=== PATIENT | male | born 1995 | race Caucasian/White ===

== ENCOUNTER 2017-12-01 12:05 | Inpatient (IN) | payer OTHER ==
[~2017-12-01] VITALS: Ht 170.2 cm; Wt 77.1 kg
[~2017-12-01 12:05] MED LIST: INSU100S54 SC; LANTUS SUBQ
[2017-12-01 12:28] VITALS: BP 112/77
--- NOTE | 2017-12-01 12:33 | NUR ---
PT AMBULATES TO BED 3
--- NOTE | 2017-12-01 12:45 | NUR ---
Pt. BIB with c/o hyperglycemia since today. Patient States " My blood sugar 530 around approx 0900 today and i took some insulin but I have still been nauseous and week afterwards". 6/10 sharp pain in in bilat knees that is non radiating. Pt. is warm and dry to touch, RR even and unlabored. Pt. complains of nausea and vomiting with no blood present. er md notified. Will continue to monitor.
[2017-12-01] MEDS ORDERED: NACL 0.9% 2,000 ML IV SCH (12:46)
[2017-12-01] MEDS ORDERED: NACL 0.9% 1,000 ML IV SCH (12:46)
[2017-12-01] MEDS ORDERED: INSULIN REGULAR, HUMAN 100 UNIT/ML VIAL IVP ONE ×2 (12:50→13:10)
[2017-12-01] MEDS ORDERED: ONDANSETRON 4 MG/2 ML VIAL IVP ONE (12:50)
[2017-12-01 13:29] LABS: BASOPHILS % (AUTO) 0.2 % (0.0-2.0); HEMATOCRIT 49.7 % (36-52); HEMOGLOBIN 16.6 g/dL (12.0-18.0); LYMPHOCYTES # (AUTO) 1.4 K/uL (2.0-11.5); LYMPHOCYTES % (AUTO) 10.5 % (20.5-51.1); MEAN CORPUSCULAR HEMOGLOBIN 30 pg (27-31); MEAN CORPUSCULAR HGB CONC 33 g/dL (33-37); MEAN CORPUSCULAR VOLUME 89.3 fL (80-94); MONOCYTES # (AUTO) 0.3 K/uL (0.8-1.0); MONOCYTES % (AUTO) 2.3 % (1.7-9.3); NEUTROPHILS # (AUTO) 11.5 K/uL (1.8-7.7); PLATELET COUNT (AUTO) 352 K/uL (140-450); RED BLOOD CELL COUNT(AUTO) 5.56 MIL/uL (4.20-6.10); RED CELL DISTRIBUTION WIDTH 12.6 % (11.6-13.7); WHITE BLOOD COUNT (AUTO) 13.2 K/uL (4.8-10.8)
[2017-12-01 13:29] LABS: APPEARANCE,URINE CLEAR (CLEAR); BLOOD, URINE TRACE-I (NEGATIVE); COLOR,URINE YELLOW (YELLOW); LEUKOCYTE ESTERASE ,URINE NEGATIVE (NEGATIVE); NITRITE, URINE NEGATIVE (NEGATIVE); UGLUCOSE 2+ (NEGATIVE)
[2017-12-01] MEDS ORDERED: SODIUM BICARBONATE 8.4% PFS 50 MEQ/50 ML SYR IVP ONE (13:30)
[2017-12-01 13:34] LABS: BILIRUBIN,URINE NEGATIVE (NEGATIVE)
[2017-12-01 13:39] LABS: ANION GAP 24.5 (8-16); CARBON DIOXIDE 14.8 mmol/L (21-32); CREATININE 1.2 mg/dL (0.7-1.3); POTASSIUM 4.3 mmol/L (3.5-5.1)
[2017-12-01 13:44] LABS: RBC,URINE 0-5 (RARE) /HPF (0-5); WBC,URINE 0-5 (RARE) /HPF (0-5)
[2017-12-01 13:44] LABS: ACETONE, SERUM TRACE (NEGATIVE)
[2017-12-01 13:45] LABS: ALBUMIN 4.7 g/dL (3.4-5.0); TOTAL BILIRUBIN 0.5 mg/dL (0.0-1.0)
--- NOTE | 2017-12-01 13:45 | NUR ---
PT. RESTING IN BED, RR EVEN AND UNLABORED. VSS. DENIES SOB AT THIS TIME. AT BEDSIDE. WILL CONTINUE TO MONITOR.
[2017-12-01 13:50] LABS: PROTHROMBIN TIME 9.9 secs (10.8-13.4)
[2017-12-01 13:54] LABS: AMYLASE 17 U/L (25-115); LIPASE 69 U/L (73-393)
--- NOTE | 2017-12-01 14:50 | NUR ---
PT. RESTING COMFORTABLY IN BED , RR EVEN AND UNLABORED. VSS. BED IN LOWEST POSITION. WILL CONTINUE TO MONITOR.
[2017-12-01] MEDS ORDERED: ACETAMINOPHEN 325 MG TAB PO PRN (15:30)
[2017-12-01 15:32] LABS: BARBITURATE, URINE NEG. ng/ml (NEG <=200); BENZODIAZEPINE, URINE NEG. ng/mL (NEG <=200); CANNABINOID, URINE NEG. ng/mL (NEG <=50); COCAINE, URINE NEG. ng/mL (NEG <=300); OPIATE, URINE NEG. ng/mL (NEG <=2000); PHENCYCLIDINE SCREEN,URINE NEG. ng/mL (NEG <=25)
--- NOTE | 2017-12-01 15:45 | NUR ---
PT. IS SLEEPING IN BED, RR EVEN AND UNLABORED. AT BEDSIDE. WILL CONTINUE TO MONITOR.
[2017-12-01 16:12] VITALS: BP 100/68
--- NOTE | 2017-12-01 16:12 | NUR ---
PATIENT ARRIVED ON MST UNIT FROM ER. ABLE TO AMBULATE FROM ER BED TO MST BED. NO DISTRESS NOTED. DENIES ANY PAIN. AAOX4, CALM, COOPERATIVE, SKIN COLOR APPROPRIATE TO ETHNICITY, WARM TO TOUCH. SKIN INTACT. IV SITE INTACT, PATENT, AND STARTED ON IVF PER MD ORDERS. ABDOMEN SOFT, NON-DISTENDED. ORIENTED PATIENT TO ROOM AND CALL LIGHT. REVIEWED PLAN OF CARE WITH PATIENT. PATIENT VERBALIZED UNDERSTANDING. SAFETY MEASURES IN PLACE, CALL LIGHT WITHIN REACH. WILL CONTINUE TO MONITOR.
--- NOTE | 2017-12-01 16:12 | NUR ---
Patient will be admitted to care of DR. VILLALOBOS . Admited to TELEMETRY . Will go to room 119A. Belongings list completed. Report to ELI ARIAS .
[2017-12-01] MEDS: NACL 0.9% 1,000 ML IV SCH (16:43)
[2017-12-01] MEDS: INSULIN LISPRO SLIDING SCALE 100 UNITS/ML VIAL SUBQ PRN (17:43)
--- NOTE | 2017-12-01 17:44 | NUR ---
PATIENT SITTING IN BED WITH AT BEDSIDE. NO DISTRESS NOTED. INSULIN GIVEN PER MD ORDERS. SAFETY MEASURES IN PLACE, CALL LIGHT WITHIN REACH. WILL CONTINUE TO MONITOR.
[2017-12-01 17:50] LABS: ANION GAP 22.7 (8-16); CREATININE 0.9 mg/dL (0.7-1.3); POTASSIUM 4.7 mmol/L (3.5-5.1)
[2017-12-01] MEDS: BLOOD GLUCOSE MONITORING 1 DEV DEV FS SCH (18:03)
--- NOTE | 2017-12-01 18:40 | NUR ---
PATIENT SITTING IN BED TALKING WITH AT BEDSIDE. NO DISTRESS NOTED. DENIES ANY PAIN. CONDITION UNCHANGED. WILL CONTINUE TO MONITOR.
--- NOTE | 2017-12-01 19:38 | NUR ---
GAVE REPORT TO CHROME WORKER NURSE FOR CONTINUITY OF CARE. PATIENT IN STABLE CONDITION.
--- NOTE | 2017-12-01 19:38 | NUR ---
RECEIVED BEDSIDE REPORT FROM DAY SHIFT NURSE JUANA, INTRODUCED SELF, PT IN BED NO SIGNS OF ACUTE DISTRESS. IV IN L AC, 20 G, INFUSING NS AT 100 ML/HR, PATENT, DRESSING INTACT. PT ON RA, DENIES PAIN, V/S WITHIN NORMAL LIMITS. PT IS ALERT, ABLE TO MAKE NEEDS KNOWN AND FOLLOW COMMANDS, CALL LIGHT WITHIN REACH, UPDATED BOARD. WILL CONTINUE TO MONITOR.
[2017-12-01 20:00] VITALS: BP 106/65
--- NOTE | 2017-12-01 22:00 | NUR ---
PT IN BED NO SIGNS OF DISTRESS. FLUSHED IV WITH 10 ML NS D/T HIGH PRESSURE. RESOLVED. WILL CONTINUE TO MONITOR.
--- NOTE | 2017-12-01 23:53 | NUR ---
BG 212. WILL MEDICATE WITH INSULIN ACCORDING TO MD ORDER.
[2017-12-02] VITALS (7 sets, daily range): BP systolic 92–136; BP diastolic 41–74
[2017-12-02] MEDS: INSULIN LISPRO SLIDING SCALE 100 UNITS/ML VIAL SUBQ PRN ×3 (00:23→12:24)
--- NOTE | 2017-12-02 00:24 | NUR ---
PT C/O PAIN, 310 IN ABDOMEN. MEDICATED WITH TYLENOL ACCORDING TO MD ORDER.
[2017-12-02] MEDS: BLOOD GLUCOSE MONITORING 1 DEV DEV FS SCH ×13 (00:43→23:15)
[2017-12-02] MEDS: ONDANSETRON 4 MG/2 ML VIAL IVP PRN ×3 (01:04→21:44)
[2017-12-02] MEDS: NACL 0.9% 1,000 ML IV SCH ×4 (01:04→23:00)
--- NOTE | 2017-12-02 01:04 | NUR ---
PT VOMITED X1, 300 ML EMESIS, GREEN/YELLOW. MEDICATED WITH ZOFRAN ACCORDING TO MD ORDER.
--- NOTE | 2017-12-02 03:21 | NUR ---
ENDORSED PT TO PEDIATRIC SPEECH THERAPIST NURSE ARILELE. PT STABLE.
--- NOTE | 2017-12-02 04:00 | NUR ---
PATIENT VOMITED 400ML EMESIS GREENISH IN COLOR. V/S TAKEN AND RECORDED. NO S/S OF DISTRESS NOTED. WILL CONTINUE TO MONITOR.
[2017-12-02] MEDS: MORPHINE SULFATE 2 MG/ML SYR IVP PRN ×4 (05:02→23:34)
--- NOTE | 2017-12-02 05:45 | NUR ---
BS 412 TAKEN AND RECORDED. PAGED DR. NEVES AND INSTRUCTED TO GIVE 12 UNITS OF INSULIN.
--- NOTE | 2017-12-02 07:20 | NUR ---
ENDORSEMENT GIVEN TO AM SHIFT NURSE AT BEDSIDE FOR CONTINUITY OF CARE. PATIENT IN STABLE CONDITION.
--- NOTE | 2017-12-02 07:21 | NUR ---
RECEIVED REPORT FROM SECURITY SERVICES MANAGER NURSE. PATIENT LYING DOWN IN BED SLEEPING, AROUSABLE BY VOICE. NO DISTRESS NOTED. DENIES ANY PAIN AT THIS TIME. RESPIRATIONS EVEN, UNLABORED, ON ROOM AIR. REPORTS HAVING GREEN VOMIT X2 OVERNIGHT. LUNGS CTA ON ALL LOBES. ABDOMEN SOFT, NON-DISTENDED. IV SITE INTACT, PATENT, AND INFUSING IVF PER MD ORDERS. REVIEWED PLAN OF CARE WITH PATIENT. PATIENT VERBALIZED UNDERSTANDING. SAFETY MEASURES IN PLACE, CALL LIGHT WITHIN REACH. WILL CONTINUE TO MONITOR.
[2017-12-02 08:59] LABS: BASOPHILS % (AUTO) 0.1 % (0.0-2.0); HEMATOCRIT 47.1 % (36-52); HEMOGLOBIN 15.2 g/dL (12.0-18.0); LYMPHOCYTES # (AUTO) 1.2 K/uL (2.0-11.5); LYMPHOCYTES % (AUTO) 7.4 % (20.5-51.1); MEAN CORPUSCULAR HEMOGLOBIN 30 pg (27-31); MEAN CORPUSCULAR HGB CONC 32 g/dL (33-37); MEAN CORPUSCULAR VOLUME 91.5 fL (80-94); MONOCYTES # (AUTO) 0.6 K/uL (0.8-1.0); MONOCYTES % (AUTO) 3.8 % (1.7-9.3); NEUTROPHILS # (AUTO) 14.3 K/uL (1.8-7.7); NEUTROPHILS % (AUTO) 88.7 % (42.2-75.2); PLATELET COUNT (AUTO) 353 K/uL (140-450); RED BLOOD CELL COUNT(AUTO) 5.15 MIL/uL (4.20-6.10); RED CELL DISTRIBUTION WIDTH 12.8 % (11.6-13.7); WHITE BLOOD COUNT (AUTO) 16.1 K/uL (4.8-10.8)
[2017-12-02] MEDS: ENOXAPARIN 40 MG/0.4 ML SYR SUBQ SCH (09:00)
--- NOTE | 2017-12-02 09:06 | NUR ---
PATIENT HAS BEEN SCREENED AND CATEGORIZED HIGH NUTRITION RISK. PATIENT WILL BE SEEN WITHIN 1-2 DAYS OF ADMISSION. 12/02/17 12/03/[address]
[2017-12-02 09:22] LABS: ALBUMIN 4.3 g/dL (3.4-5.0); ANION GAP 31.6 (8-16); CREATININE 1.4 mg/dL (0.7-1.3); POTASSIUM 5.1 mmol/L (3.5-5.1); TOTAL BILIRUBIN 0.4 mg/dL (0.0-1.0)
[2017-12-02 09:33] LABS: CARBON DIOXIDE 6.5 mmol/L (21-32)
--- NOTE | 2017-12-02 10:00 | NUR ---
PATIENT LYING DOWN IN BED SLEEPING, AROUSABLE BY VOICE. NO DISTRESS NOTED. REFUSED ENOXAPARIN AT THIS TIME. WILL CONTINUE TO MONITOR.
--- NOTE | 2017-12-02 12:15 | NUR ---
PATIENT HAD CHILLS, NAUSEA, AND COMPLAINTS OF 6/10 GENERALIZED PAIN, MORPHINE AND ZOFRAN GIVEN PER MD ORDERS. OTHER SCHEDULED MEDICATIONS DUE GIVEN. SAFETY MEASURES IN PLACE, CALL LIGHT WITHIN REACH. WILL CONTINUE TO MONITOR.
--- NOTE | 2017-12-02 14:30 | NUR ---
PATIENT LYING DOWN IN BED SLEEPING, AROUSABLE BY VOICE. NO DISTRESS NOTED. DENIES ANY PAIN. WILL CONTINUE TO MONITOR.
[2017-12-02] MEDS ORDERED: DEXTROSE 50% 50 ML SYR IVP PRN (15:00)
--- NOTE | 2017-12-02 15:26 | NUR ---
12/02/17 RD INITIAL ASSESSMENT COMPLETED PLEASE REFER TO NUTRITION ASSESSMENT UNDER CARE ACTIVITY FOR ESTIMATED NUTRITIONAL NEEDS. 1. CONTINUE CCHO 60 DIET TOLERATED 2. RECOMMEND GLUCERNA BID IF NAUSEA PERSISTS. 3. PROVIDED DKA EDUCATION TO THE PT. 4. RD TO FOLLOW-UP 3-5 DAYS, MODERATE RISK. [address]
--- NOTE | 2017-12-02 15:39 | NUR ---
PATIENT TRANSFERRED TO ICU FROM [facility]. REPORT GIVEN TO ICU NURSE. PATIENT IN STABLE CONDITION.
--- NOTE | 2017-12-02 15:40 | NUR ---
PT RECEIVED FROM TELE UNIT VIA BED. PT A/O X4, VERBAL. ABLE TO MAKE NEEDS KNOWN. AMBULATORY. SKIN DRY AND WARM TO TOUCH. LUNGS CLEAR ON AUSCULTATION. ABDOMEN SOFT ROUND AND NON-TENDER. ACTIVE BOWEL SOUND. LEFT AC INTACT. NS RUNNING AT 150 ML/HR. SKIN INTACT. CALL LIGHT WITHIN REACH, BED IN LOW POSITION. LOCKED. KEPT ON BEDSIDE MONITOR. BED IN LOW POSITION LOCKED. WILL CONTINUE TO MONITOR.
[2017-12-02 16:08] LABS: CREATININE 1.3 mg/dL (0.7-1.3); POTASSIUM 4.6 mmol/L (3.5-5.1)
--- NOTE | 2017-12-02 16:16 | NUR ---
ADMISSION CHART REVIEW DONE. GAVE VERBAL REPORT TO HARMONY AT [facility], [phone]. FAXED ER REPORT, H&P AND PROGRESS NOTE TO HARMONY AT [facility] [phone]
[2017-12-02 16:17] LABS: CARBON DIOXIDE 9.6 mmol/L (21-32)
--- NOTE | 2017-12-02 16:44 | NUR ---
PAGED AND RECEIVED CALL BACK FROM DR. VILLALOBOS. FOLLOW UP REGARDING INSULIN BOLUS BEFORE STARTING INSULIN DRIP. SAID NO NEED OF BOLUS INSULIN. START DRIP ORDERED. MADE AWARE ABOUT BS 273.
[2017-12-02] MEDS: INSULIN REGULAR, HUMAN 100 UNIT in NACL 0.9% 100 ML IV SCH ×2 (17:13)
[2017-12-02 17:16] LABS: FREE T4 (FREE THYROXINE) 0.81 ng/dL (0.76-1.46); THYROID STIMULATING HORMONE 0.47 uIU/mL (0.34-3.74)
[2017-12-02 17:17] LABS: MAGNESIUM 1.7 mg/dL (1.8-2.4); PHOSPHORUS 2.7 mg/dL (2.5-4.9)
--- NOTE | 2017-12-02 18:55 | NUR ---
PT SLEEPING IN BED COMFORTABLY. NO CHANGE IN LOC. WILL CONTINUE TO MONITOR.
--- NOTE | 2017-12-02 19:21 | NUR ---
ENDORSED TO MANAGER SALES SUPPORT RN FOR CONTINUITY OF CARE. PT ON STABLE CONDITION.
--- NOTE | 2017-12-02 19:25 | NUR ---
RECEIVED REPORT FROM SIRKANTH LYN, FOR CONTINUITY OF CARE. VS STABLE. PERRL. AFEBRILE. ABLE TO MAKE NEEDS KNOWN. DENIES PAIN AT THIS TIME. LUNG SOUNDS CLEAR. NO SOB NOTED. PT IN ROOM AIR. S1+S2 HEARD. SR TO ST ON MONITOR. PULSES ARE PALPABLE IN ALL EXTREMITIES. ABDOMEN ROUND, SOFT AND NONDISTENDED. BS ACTIVE IN ALL QUADRANTS. PT ABLE TO TURN AND REPOSITION SELF. PT HAS LEFT AC PERIPHERAL IV ACCESS 20G. NS RUNNING AT 100ML/HR AND ON INSULIN DRIP AT 2UNITS/HR. HOB KEPT AT 30 DEGREES. ALL SAFETY PRECAUTIONS ARE IN PLACE. CALL LIGHT WITHIN REACH.
--- NOTE | 2017-12-02 20:35 | NUR ---
PT'S AT BEDSIDE AT THIS TIME.
[2017-12-02 21:07] LABS: ANION GAP 24.3 (8-16); CARBON DIOXIDE 10.8 mmol/L (21-32); CREATININE 1.3 mg/dL (0.7-1.3); POTASSIUM 4.1 mmol/L (3.5-5.1)
[2017-12-02 21:11] LABS: MAGNESIUM 1.7 mg/dL (1.8-2.4)
--- NOTE | 2017-12-02 21:45 | NUR ---
PT NOTED WITH NAUSEA AND VOMITING. PT ABLE TO USE EMESIS BAG. MEDICATION GIVEN ORDERED.
--- NOTE | 2017-12-02 23:35 | NUR ---
MEDICATION FOR PAIN GIVEN TO PT. PT WANTED TO KNOW IF HIS CAN STAY AT BEDSIDE TONIGHT. WILL INFORM ROLL FILLER AND THEN LET PT KNOW.
--- NOTE | 2017-12-02 23:40 | NUR ---
INFORMED [employer] REGARDING PT REQUEST AND AGREED, COMMUNICATED THEN TO PT. ACCORDING TO PT, WILL NOT COME, SHE WILL STAY AT HOME.
[2017-12-03] VITALS (12 sets, daily range): BP systolic 106–135; BP diastolic 60–73
--- NOTE | 2017-12-03 00:30 | NUR ---
CALLED LAB TO FOLLOW-UP WITH BMP DRAW FOR PT.
[2017-12-03] MEDS: BLOOD GLUCOSE MONITORING 1 DEV DEV FS SCH ×25 (01:21→23:34)
[2017-12-03 01:42] LABS: CREATININE 1.2 mg/dL (0.7-1.3)
[2017-12-03 01:54] LABS: MAGNESIUM 1.4 mg/dL (1.8-2.4); PHOSPHORUS 2.4 mg/dL (2.5-4.9)
--- NOTE | 2017-12-03 03:05 | NUR ---
SINUS RHYTHM TO SINUS TACHYCARDIA ON MONITOR. NO COMPLAIN OF ANY DISCOMFORT FROM PT. ALL SAFETY PRECAUTIONS ARE IN PLACE. BED AT LOW POSSIBLE POSITION. WILL CONTINUE TO MONITOR PT.
[2017-12-03] MEDS: ONDANSETRON 4 MG/2 ML VIAL IVP PRN (03:38)
[2017-12-03 05:07] LABS: ANION GAP 25.3 (8-16); CARBON DIOXIDE 10.7 mmol/L (21-32); CREATININE 1.2 mg/dL (0.7-1.3)
--- NOTE | 2017-12-03 05:15 | NUR ---
SR ON MONITOR AT THIS TIME. PT DENIES ANY DISCOMFORT AT THIS TIME. HOB AT 30 DEGREES. ALL SAFETY PRECAUTIONS ARE IN PLACE. BED AT LOW POSSIBLE POSITION. CALL LIGHT WITHIN REACH. WILL CONTINUE TO MONITOR PT.
[2017-12-03 06:19] LABS: T4 (THYROXINE) 4.9 ug/dL (4.5-12.0)
[2017-12-03 06:46] LABS: MAGNESIUM 1.5 mg/dL (1.8-2.4); PHOSPHORUS 2.1 mg/dL (2.5-4.9)
[2017-12-03] MEDS: MORPHINE SULFATE 2 MG/ML SYR IVP PRN ×2 (07:00→14:22)
--- NOTE | 2017-12-03 07:05 | NUR ---
REPORT GIVEN TO MORNING RN FOR CONTINUITY OF CARE. PT IN STABLE CONDITION AT THIS TIME.
--- NOTE | 2017-12-03 07:07 | NUR ---
RECEIVED REPORT FROM HOUSEHOLD APPLIANCE INSTALLER RN. PT SLEEPING IN BED COMFORTABLE, AROUSABLE. SR ON MONITOR. SKIN DRY AND WARM TO TOUCH. LUNGS CLEAR ON AUSCULTATION. S1S2 HEARD. LEFT AC 20 G. INTACT. NS RUNNING AT 100 ML/HR. INSULIN DRIP RUNNING AT 2 UNITS/HR. ABDOMEN SOFT ROUND AND NON-TENDER. HYPOACTIVE BOWEL SOUND. SKIN INTACT. DENIES PAIN AT THIS TIME. DENIES NAUSEA AND VOMITING. CALL LIGHT WITHIN REACH. KEPT HOB ELEVATED. BED IN LOW POSITION LOCKED. CONTINUE ON BEDSIDE MONITOR.
--- NOTE | 2017-12-03 09:00 | NUR ---
PAGED AND RECEIVED CALL BACK FROM DR. VILLALOBOS. NOTIFY ABOUT WBC 16.1, PHOSPHORUS 2.1 AND MAGNESIUM 1.5. ORDERED TO GIVE MAGNESIUM SULFATE 2 GM IV ONCE AND PHOSPHORUS 1 PKT ONCE. FOLLOW UP REGARDING DIET ORDER. SAID KEEP PT ON CLEAR LIQUID DIET. WILL FOLLOW UP ORDER.
--- NOTE | 2017-12-03 09:11 | NUR ---
CALLED LAB TO FOLLOW UP BMP DRAW.
[2017-12-03] MEDS: ENOXAPARIN 40 MG/0.4 ML SYR SUBQ SCH (09:25)
[2017-12-03] MEDS ORDERED: SODIUM PHOS / POTASSIUM PHOS 1 PKT PDR PO SCH (09:30)
[2017-12-03] MEDS ORDERED: MAG SULF 2000 MG/WATER PREMIX 50 ML IV SCH (09:30)
[2017-12-03 09:32] LABS: BASOPHILS # (AUTO) 0.1 K/uL (0.00-0.22); BASOPHILS % (AUTO) 0.8 % (0.0-2.0); EOSINOPHILS % (AUTO) 0.2 % (0.0-4.0); HEMATOCRIT 43.6 % (36-52); HEMOGLOBIN 14.6 g/dL (12.0-18.0); LYMPHOCYTES # (AUTO) 2.1 K/uL (2.0-11.5); LYMPHOCYTES % (AUTO) 18.7 % (20.5-51.1); MEAN CORPUSCULAR HEMOGLOBIN 30 pg (27-31); MEAN CORPUSCULAR HGB CONC 33 g/dL (33-37); MEAN CORPUSCULAR VOLUME 90.5 fL (80-94); MONOCYTES # (AUTO) 0.9 K/uL (0.8-1.0); MONOCYTES % (AUTO) 7.6 % (1.7-9.3); NEUTROPHILS # (AUTO) 8.2 K/uL (1.8-7.7); NEUTROPHILS % (AUTO) 72.7 % (42.2-75.2); PLATELET COUNT (AUTO) 318 K/uL (140-450); RED BLOOD CELL COUNT(AUTO) 4.81 MIL/uL (4.20-6.10); RED CELL DISTRIBUTION WIDTH 12.9 % (11.6-13.7); WHITE BLOOD COUNT (AUTO) 11.3 K/uL (4.8-10.8)
--- NOTE | 2017-12-03 09:39 | NUR ---
ADMINISTERED MEDICINE ORDERED. TOLERATING WELL.
[2017-12-03] MEDS: NACL 0.9% 1,000 ML IV SCH ×2 (09:41→21:32)
--- NOTE | 2017-12-03 10:45 | NUR ---
SEEN BY DR. SANCHEZ. ORDERED TO INCREASE INSULIN DRIP RATE AT 8 UNIT/HR. ADD DEXTROSE 5% AT 100 ML/HR IF BS DROP DOWN BELOW 150.
[2017-12-03 11:23] LABS: ALBUMIN 3.7 g/dL (3.4-5.0); ANION GAP 20.5 (8-16); CARBON DIOXIDE 14.1 mmol/L (21-32); CREATININE 1.1 mg/dL (0.7-1.3); POTASSIUM 3.6 mmol/L (3.5-5.1); TOTAL BILIRUBIN 0.5 mg/dL (0.0-1.0)
--- NOTE | 2017-12-03 12:20 | NUR ---
PT SLEEPING IN BED COMFORTABLY, AROUSABLE. DENIES N/V. DENIES PAIN AT THIS TIME. VS WNL. CONTINUE ON INSULIN DRIP. WILL CONTINUE TO MONITOR. AT BEDSIDE.
--- NOTE | 2017-12-03 14:25 | NUR ---
C/O CHEST PAIN, MEDICATION GIVEN ORDER.
--- NOTE | 2017-12-03 15:17 | NUR ---
PT EVALUATED BY DR. VILLALOBOS. WILL FOLLOW UP ON ORDER.
[2017-12-03] MEDS: METOCLOPRAMIDE 10 MG/2 ML INJ VIAL IVP PRN (17:52)
--- NOTE | 2017-12-03 17:53 | NUR ---
PT C/O NAUSEA. REGLAN PER ORDER ADMINISTERED.
[2017-12-03] MEDS: INSULIN REGULAR, HUMAN 100 UNIT in NACL 0.9% 100 ML IV SCH ×6 (19:02→22:06)
--- NOTE | 2017-12-03 19:22 | NUR ---
REPORT GIVEN TO ASSOCIATE DIRECTOR DATA & ANALYTICS RN FOR CONTINUITY OF CARE. PT ON STABLE CONDITION.
--- NOTE | 2017-12-03 19:23 | NUR ---
RECEIVED REPORT FROM DAY SHIFT NO ACUTE DISTRESS NOTED.
--- NOTE | 2017-12-03 19:45 | NUR ---
PT HAS EYES CLOSED AROUSABLE. PT AOX4, PT STATES, " IM TIRED, I DID NOT HAVE ALOT OF SLEEP THIS PAST DAY." SINUS RHYTHM ON MONITOR 90S NO EDEMA NOTED. LUNGS DIMINISHED BREATH SOUNDS RR 15 SPO2 100%. PT DENIES NAUSEA VOMITING TODAY. PT VOIDING IN URINAL. IV SITE TO L UPPER FOREARM, IVF NS @ 100ML/HR. SKIN INTACT. NO OTHER S/S OF ACUTE DISTRESS NOTED.
[2017-12-04] VITALS (12 sets, daily range): BP systolic 102–130; BP diastolic 66–73
[2017-12-04] MEDS: METOCLOPRAMIDE 10 MG/2 ML INJ VIAL IVP PRN ×3 (00:22→22:56)
--- NOTE | 2017-12-04 00:25 | NUR ---
PT NAUSEATED, PRN REGLAN GIVEN. PT ASSISTED WITH BEDSIDE COMMODE. PT VOIDED URINE, PT STATES " I FEEL BETTER, IT WAS JUST GAS" PT DENIES PAIN @ THIS TIME WILL CONTINUE TO OBSERVE
[2017-12-04] MEDS: BLOOD GLUCOSE MONITORING 1 DEV DEV FS SCH ×24 (00:33→23:00)
[2017-12-04] MEDS: INSULIN REGULAR, HUMAN 100 UNIT in NACL 0.9% 100 ML IV SCH ×10 (01:06→18:07)
[2017-12-04] MEDS: MORPHINE SULFATE 2 MG/ML SYR IVP PRN ×2 (02:50→07:01)
--- NOTE | 2017-12-04 04:00 | NUR ---
AM CARE OFFERED TO PT; PT REFUSED @ THIS TIME. NO ACUTE DISTRESS NOTED. WILL CONTINUE TO OBSERVE
--- NOTE | 2017-12-04 07:28 | NUR ---
REPORT GIVEN TO DAY SHIFT FOR CONTINUITY OF CARE
--- NOTE | 2017-12-04 07:30 | NUR ---
RECEIVED REPORT FROM PLASTIC SEWER RN. PT IS SLEEPING, BUT AROUSABLE TO NAME. ABLE TO MAKE NEEDS KNOWN AND ABLE TO FOLLOW COMMANDS. NORMAL SINUS RHYTHM ON MONITOR. S1 +S2 HEARD. PT IS ON ROOM AIR, O2 SAT 98%, RR 16, BILATERAL LUNGS SOUND CLEAR. PERIPHERAL IV TO LEFT ANTECUBITAL PATENT, INTACT AND ASYMPTOMATIC, RUNNING IV FLUID NORMAL SALINE AT 100 ML/HR, INSULIN DRIP AT 2 UNITS/HR PER MD ORDER. ABDOMEN SOFT, NONTENDER AND NONDISTENDED. BOWEL SOUNDS HYPOACTIVE. DENIES N/V AT THIS TIME. SKIN IS DRY AND WARM TO TOUCH. HOB AT 30 DEGREES, BED IN LOWEST POSITION AND CALL LIGHT WITHIN REACH. WILL CONTINUE TO MONITOR.
[2017-12-04] MEDS: NACL 0.9% 1,000 ML IV SCH (07:54)
[2017-12-04] MEDS: DOCUSATE SODIUM 100 MG GELCAP PO SCH (08:55)
[2017-12-04] MEDS: PANTOPRAZOLE 40 MG INJ VIAL IVP SCH (08:55)
[2017-12-04] MEDS: ENOXAPARIN 40 MG/0.4 ML SYR SUBQ SCH (08:56)
[2017-12-04 09:08] LABS: ANION GAP 19.6 (8-16); CARBON DIOXIDE 15.6 mmol/L (21-32); POTASSIUM 3.2 mmol/L (3.5-5.1)
[2017-12-04 09:12] LABS: MAGNESIUM 1.6 mg/dL (1.8-2.4); PHOSPHORUS 1.7 mg/dL (2.5-4.9)
--- NOTE | 2017-12-04 09:14 | NUR ---
MEDICATIONS ADMINISTERED ORDERED. PT TOLERATED WELL. DENIES N/V. ABLE TO SWALLOW PILLS WITHOUT DIFFICULTY. NEEDS WELL ATTENDED. WILL CONTINUE TO MONITOR.
--- NOTE | 2017-12-04 09:49 | NUR ---
PT VOIDED USING URINAL. 1000 ML OF CLEAR YELLOW URINE NOTED.
--- NOTE | 2017-12-04 09:57 | NUR ---
PAGED DR. VILLALOBOS FOR ABNORMAL LAB RESULTS. AWAITING CALL BACK.
--- NOTE | 2017-12-04 10:07 | NUR ---
RECEIVED A RETURNED CALL FROM DR. VILLALOBOS. DR. VILLALOBOS MADE AWARE THAT K=3.2, MG= 1.6, P=1.7. ORDERS RECEIVED.
[2017-12-04] MEDS ORDERED: MAG SULF 2000 MG/WATER PREMIX 50 ML IV ONE (10:15)
[2017-12-04] MEDS ORDERED: SODIUM PHOS / POTASSIUM PHOS 1 PKT PDR PO SCH (10:45)
[2017-12-04] MEDS: KCL 20 MEQ/WATER INJ PREMIX 100 ML IV SCH ×2 (11:03→13:05)
--- NOTE | 2017-12-04 11:15 | NUR ---
PT'S AT BEDSIDE. UPDATES GIVEN ON PT. NEEDS WELL ATTENDED.
--- NOTE | 2017-12-04 13:10 | NUR ---
PT SEEN BY DR. SANCHEZ. WILL FOLLOW UP ON ORDERS.
[2017-12-04] MEDS ORDERED: LACTULOSE 20 GM/30 ML UDC PO SCH (13:30)
--- NOTE | 2017-12-04 13:55 | NUR ---
DR. VILLALOBOS IN TO SEE AND EXAMINE PT. PT'S AT BEDSIDE. WILL FOLLOW UP WITH NEW ORDERS.
--- NOTE | 2017-12-04 14:00 | NUR ---
BLOOD SUGAR 134. IV FLUID CHANGED TO D5NS AT 100 ML/HR. DR. VILLALOBOS MADE AWARE.
[2017-12-04] MEDS: MAGNESIUM SULFATE 1GM in DEXTROSE 5% 100 ML PREMIX IV SCH ×2 (15:01→15:59)
[2017-12-04] MEDS ORDERED: PROBIOTIC SCREEN 1 EA MISC MC PRN (15:30)
--- NOTE | 2017-12-04 16:00 | NUR ---
VERIFIED D5NS ORDER WITH DR. SANCHEZ. PER DR. SANCHEZ, GIVE D5NS AT 100 ML/HR.
[2017-12-04] MEDS ORDERED: DEXT 5% /NACL 0.9% 1,000 ML IV SCH (16:10)
[2017-12-04 17:03] LABS: ANION GAP 16.9 (8-16); CARBON DIOXIDE 18.1 mmol/L (21-32); CREATININE 0.9 mg/dL (0.7-1.3)
[2017-12-04 17:07] LABS: MAGNESIUM 1.8 mg/dL (1.8-2.4)
--- NOTE | 2017-12-04 17:17 | NUR ---
PAGED DR. VILLALOBOS FOR ABNORMAL LABS. AWAITING CALL BACK.
[2017-12-04 17:18] LABS: PHOSPHORUS 0.9 mg/dL (2.5-4.9)
--- NOTE | 2017-12-04 17:25 | NUR ---
DR. RAMIREZ, WELFARE MANAGER FOR DR. VILLALOBOS, CALLED BACK. REPORTED K=3.0, P=0.9. ORDER RECEIVED.
--- NOTE | 2017-12-04 17:45 | NUR ---
PHARMACY CLOSED AT THIS TIME. MEDICAL TRANSCRIPTION SUPERVISOR MADE AWARE OF MEDICATION THAT IS UNAVAILABLE. WILL FOLLOW UP.
--- NOTE | 2017-12-04 18:10 | NUR ---
PER REAL ESTATE ADMINISTRATIVE ASSISTANT, MARCELINO FROM PHARMACY WILL COME AND MIX THE MEDICATION. WILL FOLLOW UP.
[2017-12-04] MEDS ORDERED: POTASSIUM PHOSPHATE 30 MM in NACL 0.9% 250 ML IV ONE (18:30)
--- NOTE | 2017-12-04 19:30 | NUR ---
RECEIVED REPORT FROM AM SHIFT. PT AO X4. FOLLOWS COMMANDS. ABLE TO VERBALIZE NEEDS. IV SITE R AC 20G. ON INSULIN DRIP 8UNITS/HR. LUNGS CTA BILATERALLY. SR ON MONITOR. LAST BLOOD SUGAR 112MG/DL. BOWEL SOUNDS ACTIVE X 4 QUADRANTS. ABD SOFT NONTENDER. NPO AT THIS TIME. SIDE RAILS UP X3. BED IN LOWEST POSITION. WILL CONTINUE TO MONITOR.
--- NOTE | 2017-12-04 19:31 | NUR ---
REPORT GIVEN TO MANAGER CT RN FOR CONTINUITY OF CARE. PT IS IN STABLE CONDITION.
[2017-12-04 21:16] LABS: ANION GAP 15.9 (8-16); CARBON DIOXIDE 20.9 mmol/L (21-32); CREATININE 0.9 mg/dL (0.7-1.3)
[2017-12-04 21:19] LABS: MAGNESIUM 1.8 mg/dL (1.8-2.4)
[2017-12-04 21:27] LABS: PHOSPHORUS 0.9 mg/dL (2.5-4.9); POTASSIUM 2.8 mmol/L (3.5-5.1)
--- NOTE | 2017-12-04 21:38 | NUR ---
SPOKE WITH DR. RAMIREZ ABOUT LOW BLOOD SUGAR. NEW ORDER OF D51/2NS @ 100 ML/HR AND 2 AMP SODIUM BICARB. REPORTED CRITICAL LAB VALUE OF RICH 0.9 AND K 2.8. WILL CONTINUE TO FOLLOW UP ANY ADDITIONAL ORDERS.
[2017-12-04] MEDS ORDERED: SODIUM BICARBONATE 8.4% 100 MEQ in NACL 0.9% 1,000 ML IV SCH (22:10)
[2017-12-04] MEDS ORDERED: DEXT 5% / NACL 0.45% 1,000 ML IV SCH (22:10)
--- NOTE | 2017-12-04 22:56 | NUR ---
PT C/O NAUSEA AT THIS TIME. REGLAN GIVEN AT THIS TIME WILL CONTINUE TO MONITOR.
--- NOTE | 2017-12-04 23:10 | NUR ---
DR. RAMIREZ NOTIFIED OF PATIENT'S BLOOD SUGAR LEVEL AT 2235, 170MG/DL. UPDATED OF PATIENT'S CONDITION. DR. RAMIREZ SAID TO DISCONTINUE ORDER OF SODIUM BICARB AND D5 1/2 NS AND CONTINUE WITH PREVIOUS IVF ORDER.
--- NOTE | 2017-12-04 23:15 | NUR ---
ORDERS D/C FOR SODIUM BICARB 2 AMP AND D51/2NS. CONTINUE WITH PREVIOUS ORDERS.
[2017-12-05] VITALS (12 sets, daily range): BP systolic 109–125; BP diastolic 62–80
[2017-12-05] MEDS: BLOOD GLUCOSE MONITORING 1 DEV DEV FS SCH ×25 (00:31→23:00)
[2017-12-05] MEDS ORDERED: DEXT 5% /NACL 0.9% 1,000 ML IV SCH ×2 (00:35→13:50)
[2017-12-05 00:54] LABS: MAGNESIUM 1.8 mg/dL (1.8-2.4)
[2017-12-05 01:06] LABS: PHOSPHORUS 1.5 mg/dL (2.5-4.9)
[2017-12-05 01:08] LABS: ANION GAP 14.7 (8-16); CARBON DIOXIDE 20.1 mmol/L (21-32); CREATININE 0.9 mg/dL (0.7-1.3)
[2017-12-05 01:10] LABS: POTASSIUM 2.8 mmol/L (3.5-5.1)
--- NOTE | 2017-12-05 04:30 | NUR ---
SPOKE WITH DR. RAMIREZ REGARDING LAB RESULTS K 2.7 AND BLOOD SUGAR 54MG/DL. ORDER KDUR 40MEQ PO AND KRIDER 40MEQ. INSULIN DRIP STOPPED AT THIS TIME AND GIVEN D50. WILL CONTINUE TO MONITOR RESULTS.
[2017-12-05 04:34] LABS: ANION GAP 15.6 (8-16); CARBON DIOXIDE 21.1 mmol/L (21-32); CREATININE 0.8 mg/dL (0.7-1.3)
[2017-12-05 04:38] LABS: MAGNESIUM 1.7 mg/dL (1.8-2.4); PHOSPHORUS 1.6 mg/dL (2.5-4.9)
[2017-12-05 04:54] LABS: POTASSIUM 2.7 mmol/L (3.5-5.1)
[2017-12-05] MEDS ORDERED: POTASSIUM CHLORIDE 10 MEQ TABER PO SCH (05:30)
[2017-12-05] MEDS ORDERED: DEXTROSE 10% IV SCH (06:00)
[2017-12-05] MEDS ORDERED: NACL IV SCH (06:00)
--- NOTE | 2017-12-05 07:24 | NUR ---
RECEIVED REPORT FROM DIAGNOSTIC TECHNOLOGIST NURSE, CALEB. PATIENT AWAKE AND ALERT. RESPONSES APPROPRIATELY. PUPILS ROUND AND REACTIVE TO LIGHT. LUNG SOUND CLEAR. BOWEL SOUND ACTIVE. SKIN WARM DRY AND INTACT. NO COMPLAINTS OF PAIN AT THIS TIME. CALL LIGHT IN REACH.
[2017-12-05] MEDS ORDERED: POTASSIUM CHLORIDE 40 MEQ, LIDOCAINE 1% 25 MG in NACL 0.9% 250 ML IV SCH (08:00)
[2017-12-05] MEDS: PANTOPRAZOLE 40 MG INJ VIAL IVP SCH (09:00)
--- NOTE | 2017-12-05 09:00 | NUR ---
patient refused sponge bath and shampoo.
[2017-12-05] MEDS: LACTULOSE 20 GM/30 ML UDC PO SCH (09:04)
[2017-12-05] MEDS: DOCUSATE SODIUM 100 MG GELCAP PO SCH (09:05)
[2017-12-05] MEDS: ENOXAPARIN 40 MG/0.4 ML SYR SUBQ SCH (09:12)
[2017-12-05 09:46] LABS: ANION GAP 16.6 (8-16); CARBON DIOXIDE 19.7 mmol/L (21-32); CREATININE 0.8 mg/dL (0.7-1.3); POTASSIUM 3.3 mmol/L (3.5-5.1)
--- NOTE | 2017-12-05 10:50 | NUR ---
DR SANCHEZ AT BEDSIDE. INSULIN INCREASED TO [address] ORDER[address] WILL FOLLOW UP
[2017-12-05] MEDS: INSULIN REGULAR, HUMAN 100 UNIT in NACL 0.9% 100 ML IV SCH ×4 (12:10→18:14)
[2017-12-05 13:46] LABS: ANION GAP 15.3 (8-16); CREATININE 0.8 mg/dL (0.7-1.3); POTASSIUM 3.3 mmol/L (3.5-5.1)
[2017-12-05 17:19] LABS: CARBON DIOXIDE 22.5 mmol/L (21-32); POTASSIUM 3.1 mmol/L (3.5-5.1)
[2017-12-05 17:20] LABS: ANION GAP 13.6 (8-16); CREATININE 0.7 mg/dL (0.7-1.3)
[2017-12-05] MEDS ORDERED: POTASSIUM CHLORIDE 10 MEQ TABER PO ONE (19:00)
--- NOTE | 2017-12-05 19:15 | NUR ---
RECEIVED REPORT FROM MORNING RN FOR CONTINUITY OF CARE. VS STABLE. AFEBRILE. PERRL. ABLE TO MAKE NEEDS KNOWN. ABLE TO FOLLOW COMMANDS. AAOX4. LUNG SOUNDS CLEAR. PT IN ROOM AIR. RESPIRATION EVEN AND UNLABORED. S1+S2 HEARD. SINUS RHYTHM ON MONITOR. PULSES PALPABLE IN ALL EXTREMITIES. ABDOMEN ROUND, SOFT AND NONDISTENDED. BS ACTIVE IN ALL QUADRANTS. PT HAS PERIPHERAL IV ACCESS ON LEFT AC 20G AND RIGHT WRIST 20G. ALL LINES ARE PATENT, INTACT, AND ASYMPTOMATIC. PT STILL ON INSULIN DRIP. RECEIVED PT AT 6UNITS/HR. PT DENIES FEELING DIZZY OR ANY DISCOMFORT. HOB AT 30 DEGREES. BED AT LOW POSSIBLE POSITION. ALL SAFETY PRECAUTIONS IN PLACE.
--- NOTE | 2017-12-05 21:08 | NUR ---
RECEIVED A CALLBACK FROM DR. SUN, CLARIFIED INSULIN ORDER AND PARAMETERS ALONG WITH IV FLUIDS AND DIET ORDER FOR PT. RECEIVED NEW ORDERS.
[2017-12-05 21:23] LABS: ANION GAP 10.7 (8-16); CARBON DIOXIDE 24.6 mmol/L (21-32); POTASSIUM 3.3 mmol/L (3.5-5.1)
[2017-12-05 21:37] LABS: CREATININE 0.9 mg/dL (0.7-1.3)
[2017-12-05] MEDS: NACL 0.9% 1,000 ML IV SCH (22:00)
--- NOTE | 2017-12-05 22:13 | NUR ---
DR. SUN CALLED BACK AND REPORTED THE CURRENT VALUE OF ANION GAP ALONG WITH THE TREND. PER DR SUN HE WANTS ANOTHER VALUE OF CLOSED ANION GAP BEFORE D/C INSULIN DRIP.
[2017-12-06] VITALS (9 sets, daily range): BP systolic 103–122; BP diastolic 67–89
--- NOTE | 2017-12-06 00:43 | NUR ---
CALLED LAB REGARDING MIDNIGHT DRAW, THEY WILL FOLLOW-UP WITH THE HAT AND CAP PARTS CUTTER HAND.
--- NOTE | 2017-12-06 00:54 | NUR ---
VS STABLE AT THIS TIME. PT AWAKE AND IN BED. SINUS RHYTHM ON MONITOR. PT DENIES HAVING ANY PAIN OR DISCOMFORT.
[2017-12-06] MEDS: BLOOD GLUCOSE MONITORING 1 DEV DEV FS SCH ×18 (01:00→17:04)
[2017-12-06] MEDS: NACL 0.9% 1,000 ML IV SCH (01:28)
[2017-12-06 01:58] LABS: ANION GAP 11.5 (8-16); CARBON DIOXIDE 23.9 mmol/L (21-32); POTASSIUM 3.4 mmol/L (3.5-5.1)
[2017-12-06 02:00] LABS: CREATININE 0.9 mg/dL (0.7-1.3)
--- NOTE | 2017-12-06 02:25 | NUR ---
PT STILL AWAKE AT THIS TIME. NO CHANGE IN CONDITION. PT STILL ON INSULIN DRIP. BED AT LOW POSSIBLE POSITION. ALL SAFETY PRECAUTIONS ARE IN PLACE.
[2017-12-06] MEDS ORDERED: DEXT 5% / NACL 0.45% 1,000 ML IV SCH (03:30)
[2017-12-06] MEDS ORDERED: DEXT 5% / NACL 0.9% 1,000 ML IV SCH (03:40)
--- NOTE | 2017-12-06 04:10 | NUR ---
PT USED URINAL. URINE IS CLEAR AND LIGHT EDIE IN COLOR. CURRENTLY NO BM.
[2017-12-06 04:47] LABS: BASOPHILS % (AUTO) 0.4 % (0.0-2.0); EOSINOPHILS # (AUTO) 0.1 K/uL (0-0.4); EOSINOPHILS % (AUTO) 0.9 % (0.0-4.0); HEMATOCRIT 36.3 % (36-52); HEMOGLOBIN 12.5 g/dL (12.0-18.0); LYMPHOCYTES # (AUTO) 2.2 K/uL (2.0-11.5); LYMPHOCYTES % (AUTO) 24.5 % (20.5-51.1); MEAN CORPUSCULAR HEMOGLOBIN 30 pg (27-31); MEAN CORPUSCULAR HGB CONC 35 g/dL (33-37); MEAN CORPUSCULAR VOLUME 87.4 fL (80-94); MONOCYTES # (AUTO) 0.7 K/uL (0.8-1.0); MONOCYTES % (AUTO) 7.3 % (1.7-9.3); NEUTROPHILS % (AUTO) 66.9 % (42.2-75.2); PLATELET COUNT (AUTO) 219 K/uL (140-450); RED BLOOD CELL COUNT(AUTO) 4.15 MIL/uL (4.20-6.10); RED CELL DISTRIBUTION WIDTH 12.5 % (11.6-13.7); WHITE BLOOD COUNT (AUTO) 8.9 K/uL (4.8-10.8)
[2017-12-06 05:03] LABS: ANION GAP 10.4 (8-16); CARBON DIOXIDE 23.9 mmol/L (21-32); POTASSIUM 3.3 mmol/L (3.5-5.1)
--- NOTE | 2017-12-06 05:43 | NUR ---
PERIPHERAL IV SITE ON LEFT AC SLIGHTLY REDDENED. PT C/O PAIN WHEN FLUSHED. IV SITE REMOVED AND INFUSION NOW RUNNING ON RIGHT WRIST 20G IV ACCESS. BLOOD RETURN NOTED.
[2017-12-06 06:22] LABS: CREATININE 0.8 mg/dL (0.7-1.3)
--- NOTE | 2017-12-06 07:20 | NUR ---
RECEIVED REPORT FROM NOC RN FOR CONTINUITY OF CARE. PATIENT IN STABLE CONDITION. PATIENT IS AWAKE ORIENTED X4. PATIENT IS ABLE TO FOLLOW SIMPLE COMMANDS. SKIN WARM TO TOUCH WNL. URINE AND BOWEL CONTINENT, ABLE TO MAKE NEEDS KNOWN. RIGHT WRIST G 20 PERIPHERAL IV PATENT AND AND INTACT. ON INSULIN DRIP AT 2 UNITS PER HOUR. PERIPHERAL IV OF D5 1/2 NS AT 100 ML/H. ON ROOM AIR. CALL LIGHT WITHIN REACH. SAFETY MEASURES IN PLACE. WILL CONTINUE TO MONITOR PATIENT.
[2017-12-06] MEDS: LACTULOSE 20 GM/30 ML UDC PO SCH (08:52)
[2017-12-06] MEDS: DOCUSATE SODIUM 100 MG GELCAP PO SCH (08:53)
[2017-12-06] MEDS: PANTOPRAZOLE 40 MG INJ VIAL IVP SCH (08:53)
[2017-12-06] MEDS: ENOXAPARIN 40 MG/0.4 ML SYR SUBQ SCH (08:54)
--- NOTE | 2017-12-06 10:08 | NUR ---
FINGER BS CHECKED 267, INCREASED INSULIN DRIP TO 3 UNITS/HR AND CHANGED IV FLUID TO NS AT 100 MLS/HR PER ORDER.
--- NOTE | 2017-12-06 10:57 | NUR ---
BS CHECKED 235, DECREASED INSULIN DRIP TO 2 UNITS/HR. CHANGE IVF FROM NS 100 MLS/HR TO D5 NS 100 MLS/HR.
--- NOTE | 2017-12-06 12:32 | NUR ---
PT RESTING IN BED. NO S/S OF RESPIRATORY DISTRESS NOTED. PT STATED HE IS FINE.
[2017-12-06 13:00] LABS: ANION GAP 14.9 (8-16); CARBON DIOXIDE 22.5 mmol/L (21-32); CREATININE 0.7 mg/dL (0.7-1.3); POTASSIUM 3.4 mmol/L (3.5-5.1)
--- NOTE | 2017-12-06 13:00 | NUR ---
BLOOD GLUCOSE FINGER STICK 272 . INCREASE INSULIN DRIP UP 3 UNIT/HR., SWITH IV FLUID TO NS O.9 AT 100ML/HR.
[2017-12-06 13:36] LABS: ANION GAP 14.8 (8-16); CARBON DIOXIDE 22.4 mmol/L (21-32); CREATININE 0.7 mg/dL (0.7-1.3); POTASSIUM 3.2 mmol/L (3.5-5.1)
--- NOTE | 2017-12-06 14:00 | NUR ---
BLOOD GLUCOSE 232 ,INSULIN INFUSSION AT 2UNITS/HR IV FLUID NS 0.9% AT 100ML/HR.
[2017-12-06] MEDS ORDERED: POTASSIUM CHLORIDE 10 MEQ TABER PO SCH (15:00)
--- NOTE | 2017-12-06 15:00 | NUR ---
BLOOD GLUCOSE 212 , INSULIN AT 2UNIT/HOUR D5 NS AT 100ML/HL.
--- NOTE | 2017-12-06 15:20 | NUR ---
EMPTY URENAL 950 ML URINE.
[2017-12-06] MEDS ORDERED: NACL 0.9% 1,000 ML IV SCH ×2 (15:28)
--- NOTE | 2017-12-06 17:00 | NUR ---
PATIENT WANTED TO GO AMA. RISKS EXPLAINED. STILL WANT LEAVE. AMA FORMED SIGNED. DR. SANCHEZ AND DR VILLALOBOS PAGED AND MADE AWARE.
--- NOTE | 2017-12-06 17:20 | NUR ---
IV REMOVED AND DRESSING APPLIED, CATHETER INTACT. PATIENT LEFT AMA, ACCOMPANIED BY .
[2017-12-06 17:30] LABS: ANION GAP 12.7 (8-16); CARBON DIOXIDE 24.9 mmol/L (21-32); CREATININE 0.6 mg/dL (0.7-1.3); POTASSIUM 3.6 mmol/L (3.5-5.1)
== END 2017-12-06 17:20 | disposition left against medical advice (07) | DRG 420 ==
LOC: MED 12:05 → MTU 15:28 → MIC 12-02 16:02
PROVIDERS: ADMIT Hospitalist; ATTEND Hospitalist
DX: E10.10 Type 1 diabetes mellitus with ketoacidosis without coma (principal); E86.0 Dehydration; J06.9 Acute upper respiratory infection, unspecified; K59.00 Constipation, unspecified; Z53.21 Procedure and treatment not carried out due to patient leaving prior to being seen by health care provider; J45.909 Unspecified asthma, uncomplicated; E86.9 Volume depletion, unspecified
CPT/HCPCS: 36415; 36600; 71045; 74018; 80048; 80053; 80305; 81001; 82009; 82150; 82803; 82948; 83036; 83605; 83690; 83735; 83880; 84100; 84436; 84439; 84443; 84479; 84484; 85025; 85610; 85730; 87040; 87081; 87086; 93005; 96361; 96374; 96375; 99291; C9113; G0482; J1650; J1815; J2001; J2270; J2405; J2765; J3475; J3480; J7030; J7042; J7131; Q0092